=== PATIENT | female | born 1945 | race Caucasian/White ===

== ENCOUNTER 2024-02-19 11:56 | Emergency (ER) | payer MEDICARE, OTHER ==
[~2024-02-19] VITALS: Ht 162.6 cm; Wt 63.5 kg
== END 2024-02-19 16:12 | disposition home or self-care (01) ==
LOC: ER 11:56
DX: S00.83XA Contusion of other part of head, initial encounter (principal); W06.XXXA Fall from bed, initial encounter
CPT/HCPCS: 70450; 72125; 93005; 93010; 99284-25

== ENCOUNTER 2024-06-02 08:23 | Emergency (ER) | payer OTHER, MEDICARE ==
[~2024-06-02] VITALS: Ht 162.6 cm; Wt 54.4 kg
[2024-06-02] MEDS ORDERED: METO50ER PO (09:16)
[2024-06-02] MEDS ORDERED: ELIQUIS5 M2 PO (09:17)
== END 2024-06-02 11:06 | disposition home or self-care (01) ==
LOC: ER 08:23
DX: Z04.3 Encounter for examination and observation following other accident (principal)
CPT/HCPCS: 70450; 99284-25

== ENCOUNTER 2024-08-02 11:23 | Emergency (ER) | payer MEDICARE, OTHER ==
[~2024-08-02] VITALS: Ht 172.7 cm; Wt 49.9 kg
[~2024-08-02 11:23] MED LIST: ELIQUIS5 M2 PO; METO50ER PO
[2024-08-02 11:41] LABS: BASOPHILS ABSOLUTE AUTO 0.01 K/mm3 (0.00-0.23); BASOPHILS PERCENT AUTO 0 % (0-2); EOSINOPHILS PERCENT AUTO 0 % (0-6); Hemoglobin 11.5 g/dL (11.5-16.0); IMMATURE GRAN ABSOLUTE AUTO 0.02 K/mm3 (0.00-0.10); IMMATURE GRAN PERCENT AUTO 0 % (0-1); LYMPHOCYTES ABSOLUTE AUTO 0.52 K/mm3 (0.84-5.20); LYMPHOCYTES PERCENT AUTO 11 % (21-46); MONOCYTES ABSOLUTE AUTO 0.47 K/mm3 (0.16-1.47); MONOCYTES PERCENT AUTO 10 % (4-13); Mean Corpuscular HGB 33.7 pg (26.0-34.0); Mean Corpuscular HGB Conc 34.8 g/dL (31.5-36.5); Mean Corpuscular Volume 97 fL (80-100); Mean Platelet Volume 9.5 fL (9.1-12.4); NEUTROPHILS ABSOLUTE AUTO 3.93 K/mm3 (1.96-9.15); NEUTROPHILS PERCENT AUTO 79 % (41-73); Platelet Count 166 K/mm3 (150-400); RDW Coefficient Variation 13.6 % (11.7-14.2); RDW Standard Deviation 48.8 fL (35.1-46.3); Red Blood Cell Count 3.41 M/mm3 (3.80-5.20); White Blood Cell Count 4.95 K/mm3 (4.00-11.30)
[2024-08-02 11:53] LABS: Albumin/Globulin Ratio 0.7 (0.8-1.8); Bilirubin, Total 0.5 mg/dL (0.1-1.0); Bun/Creatinine Ratio 37.8 (12.0-20.0); Calcium, Blood 8.9 mg/dL (8.5-10.1); Creatinine, Blood 0.58 mg/dL (0.40-1.00); Globulin, Blood 4.3 g/dL (2.2-4.0); Potassium, Blood 3.6 mmol/L (3.5-5.5); Total Protein, Blood 7.3 g/dL (6.4-8.2)
[2024-08-02 12:08] LABS: Source, Urine Straight Cath
[2024-08-02 12:16] LABS: Appearance, Urine Cloudy (Clear); Bilirubin, Urine Neg (Neg); Blood, Urine 4+ (Neg); Color, Urine Yellow (P-Yellow); Glucose Qualitative, Urine Neg (Neg); Ketones, Urine 1+ (Neg); Leukocyte Esterase, Urine 3+ (Neg); Nitrite, Urine Pos (Neg); Protein, Urine 2+ (Neg); Specific Gravity, Urine 1.025 (1.003-1.022); Urobilinogen, Urine NORM (Normal)
[2024-08-02 12:25] LABS: Bacteria Many /hpf; Squamous Epithelial Cells Few /hpf (Few); White Blood Cells, Urine TNTC /hpf (0-5)
[2024-08-02] MEDS ORDERED: CefTRIAXone Sodium 1,000 MG in NS 50 ML IV ONE (12:45)
[2024-08-02] MEDS ORDERED: CEPH500 PO (14:52)
== END 2024-08-02 15:48 | disposition home or self-care (01) ==
LOC: ER 11:23
PROVIDERS: Emergency Medicine; Student in an Organized Health Care Education/Training Program
DX: N39.0 Urinary tract infection, site not specified (principal); K59.00 Constipation, unspecified; Z79.01 Long term (current) use of anticoagulants; Z79.899 Other long term (current) drug therapy
CPT/HCPCS: 74177; 80053; 81001; 82140; 83690; 85025; 87077; 87086; 87186; 93005; 93010; 96365-59; 96366; 99285-25; J0696; P9612; Q9967

== ENCOUNTER 2024-08-06 08:33 | Emergency (ER) | payer MEDICARE, OTHER ==
[~2024-08-06] VITALS: Ht 172.7 cm; Wt 51.7 kg
[~2024-08-06 08:33] MED LIST changes: +CEPH500 PO
[2024-08-06] MEDS ORDERED: NITR100CA PO (09:20)
== END 2024-08-06 10:34 | disposition home or self-care (01) ==
LOC: ER 08:33
DX: N39.0 Urinary tract infection, site not specified (principal); R19.7 Diarrhea, unspecified; Z79.899 Other long term (current) drug therapy
CPT/HCPCS: 99284

== ENCOUNTER 2024-12-23 11:45 | Inpatient (IN) | payer MEDICARE, OTHER ==
[~2024-12-23] VITALS: Ht 172.7 cm; Wt 61.6 kg
== END 2024-12-25 19:55 | DRG 392 ==
LOC: ER 11:45 → MEDS 11:46 → PCU 12-25 11:49
PROVIDERS: ADMIT Internal Medicine
DX: K59.81 Ogilvie syndrome (principal); I48.20 Chronic atrial fibrillation, unspecified; R41.841 Cognitive communication deficit; Z51.5 Encounter for palliative care; Z66 Do not resuscitate; Z79.01 Long term (current) use of anticoagulants; Z86.711 Personal history of pulmonary embolism; Z87.820 Personal history of traumatic brain injury; Z91.199 Patient's noncompliance with other medical treatment and regimen due to unspecified reason